=== PATIENT | female | born 1940 | race Caucasian/White ===

== ENCOUNTER → 2018-06-30 | Outpatient (CLI) | payer MEDICARE | LOC: M PLARAD 10:39 | DX: D49.6 Neoplasm of unspecified behavior of brain (principal) | CPT/HCPCS: 78815 ==

== ENCOUNTER 2019-02-16 08:46 | Inpatient (IN) | payer MEDICARE ==
[~2019-02-16] VITALS: Ht 172.7 cm; Wt 71.8 kg
[~2019-02-16 08:46] MED LIST: ASPI81TA85 PO; ATOR40TA75 PO; CARA1TAB6 PO; CLOP75TA2 PO; DOCQ100C5 PO; FERR325T3 PO; FURO20TA2 PO; LISI10TA4 PO; METO1TAB33 PO; MIRA3350 PO; PANT40TA3 PO; SENO8.6T10 PO; TYLE325T5 PO
[2019-02-16] MEDS ORDERED: ADACEL/BOOSTRIX VACCINE (DIPHTH/PERTUSS/ACELL/TETANUS)0.5ML SYR (90715) IM ONE (11:30)
[2019-02-16] MEDS ORDERED: METO1TAB32 PO (11:55)
[2019-02-16] MEDS ORDERED: KEPP1TAB PO (11:56)
[2019-02-16] MEDS ORDERED: COLA100C5 PO (11:56)
[2019-02-16] MEDS ORDERED: ASCO500T PO (11:56)
[2019-02-16] MEDS ORDERED: POTA10TA67 PO (11:56)
[2019-02-16 12:12] LABS: BASO % 0.5 % (0.0-1.0); EOS # 0.1 10^3/uL (0.0-0.50); HEMATOCRIT 39.3 % (36.0-47.0); HEMOGLOBIN 12.6 g/dl (12.0-15.5); LYMPH # 1.2 10^3/uL (1.5-4.5); LYMPH % 13.2 % (24.0-44.0); MEAN CORPUSCULAR HEMOGLOBIN 28.4 pg (27.0-33.0); MEAN CORPUSCULAR HGB CONC 32.1 g/dl (32.0-36.5); MEAN CORPUSCULAR VOLUME 88.5 fl (80.0-96.0); MONO # 0.7 10^3/uL (0.0-0.8); MONO % 8.5 % (0.0-5.0); NEUTROPHILS # 6.7 10^3/uL (1.8-7.7); NEUTROPHILS % 76.3 % (36.0-66.0); PLATELET COUNT, AUTOMATED 235 10^3/uL (150-450); RED BLOOD COUNT 4.44 10^6/uL (4.00-5.40); WHITE BLOOD COUNT 8.7 10^3/uL (4.0-10.0)
[2019-02-16 12:47] LABS: ALBUMIN 3.2 GM/DL (3.2-5.2); ALT/SGPT 21 U/L (12-78); BILIRUBIN,DIRECT 0.3 MG/DL (0.0-0.2); BLOOD UREA NITROGEN 7 MG/DL (7-18); CALCIUM LEVEL 8.7 MG/DL (8.8-10.2); CARBON DIOXIDE LEVEL 28 MEQ/L (21-32); CHLORIDE LEVEL 110 MEQ/L (98-107); CK-MB VALUE MASS 2.4 NG/ML (<3.6); CPK CREATINE PHOSPHOKINASE 108 U/L (26-192); CREATININE FOR GFR 0.56 MG/DL (0.55-1.30); ETHYL ALCOHOL (ETHANOL) < 0.003 % (0.000-0.010); GLOMERULAR FILTRATION RATE > 60.0 (>32); GLUCOSE, FASTING 85 MG/DL (70-100); MB/CK RELATIVE INDEX 2.22 (< OR =4); POTASSIUM SERUM 3.5 MEQ/L (3.5-5.1); SODIUM LEVEL 144 MEQ/L (136-145); TROPONIN I < 0.02 NG/ML (< 0.10)
--- NOTE | 2019-02-16 12:50 | REP ---
Right knee series: Four views. History: Trauma. Findings: Four views of the right knee are presented. No sunrise view. There is soft tissue swelling in the suprapatellar bursa on the lateral radiograph indicating a small joint effusion. There is patellofemoral spur formation. Medial and lateral compartment osteoarthritic spurring is noted as well. There is diffuse osteopenia. Vascular calcification is noted. No fracture is seen. Impression: No fracture noted. Probable joint effusion. Three compartment osteoarthritis and vascular calcification. Diffuse osteopenia. Electronically Signed by Wesley Cansa MD 02/16/2019 12:41 P
--- NOTE | 2019-02-16 12:50 | REP ---
CHEST X-RAY: Two views. HISTORY: Altered mental status. Comparison chest CT study is from May 12, 2018. CHEST X-RAY FINDINGS: EKG monitoring electrodes overlie the chest. Heart is mildly prominent. The thoracic aorta is calcific and tortuous. Pulmonary vasculature is not increased. Pleural angles are sharp. Interstitial markings are little prominent consistent with interstitial fibrosis pattern seen on chest CT. Calcific pleural plaquing is seen. This is unchanged. IMPRESSION: No focal infiltrate. Calcific pleural plaquing. Mild cardiomegaly. Mildly prominent interstitial markings unchanged from comparison CT study. Electronically Signed by Wesley Canas MD 02/16/2019 04:55 P
--- NOTE | 2019-02-16 12:57 | REP ---
Right ankle series: Four views. History: Trauma. Findings: Four views of the right ankle demonstrate mild diffuse osteopenia. Ankle mortise is intact. No fracture is seen. There is Achilles and plantar calcaneal spurring. There is mild to moderate midfoot osteoarthritic spurring. There is some soft tissue swelling anteriorly in the distal calf. Impression: No fracture or other acute bony abnormality seen. Calcaneal spurring and midfoot osteoarthritic spurring noted. Electronically Signed by Wesley Canas MD 02/16/2019 04:56 P
--- NOTE | 2019-02-16 13:02 | REP ---
BILATERAL ELBOW SERIES: Four views of each elbow are performed. There is no acute fracture, dislocation, or intrinsic bone disease. IMPRESSION: No fracture or dislocation. Electronically Signed by Delio Priest MD 02/18/2019 09:18 A
--- NOTE | 2019-02-16 13:04 | REP ---
CT brain without contrast: History: Trauma. Comparison head CT study May 12, 2018. There is apparently a history of a brain tumor. CT findings: Preliminary digital reproductive healthcare assistant radiograph is unremarkable. There is a dural-based slightly hyperdense mass lesion again seen on both sides of the posterior falx. This is similar in size to its appearance on May 12, 2018. It measures approximately 4 cm in transverse dimension. It is associated with fairly extensive vasogenic edema involving the parietal lobes, occipital lobes, and posterior temporal lobes bilaterally. The temporal lobe edema is more extensive on the left than the right. The vasogenic edema appears slightly more prominent today than it did on May 12, 2008. There is no evidence of intracranial hemorrhage. No midline shift is seen. No extra-axial fluid collection is observed. No bony abnormality or fracture is seen. Impression: Fairly large mass adjacent to or involving the posterior falx with extensive vasogenic edema in the parietal lobes, occipital lobes, and temporal lobes bilaterally. The vasogenic edema is slightly more extensive than on May 12, 2018. The neoplastic lesion does not appear to be any larger however. There is no evidence of intracranial hemorrhage or infarction. No extra-axial fluid collection is seen. No midline shift noted. Electronically Signed by Wesley Canas MD 02/16/2019 04:56 P
--- NOTE | 2019-02-16 13:36 | REP ---
CT study of the cervical spine without contrast: History: Trauma. Comparison is made with imaging done on May 12, 2018. Technique: Helical scanning is acquired and overlapping 2 mm high resolution axial images were generated and reviewed at bone and soft tissue window settings. Coronal and sagittal multiplanar re-formations images are generated. CT findings: There is no evidence of cervical spine element fracture. No skull base fracture is seen. Cervical vertebral body heights are preserved. Alignment is normal. Facet joints are normally aligned bilaterally at each cervical level on multiplanar re-formations images. There is no evidence of intraspinal or paraspinal hematoma. No extra vertebral abnormality is seen. There is fairly extensive degenerative spondylosis with degenerative disc changes at each cervical level and osteoarthritic facet changes noted bilaterally. The osteoarthritic facet hypertrophy and sclerosis are most pronounced on the right. There are somewhat elongate transverse processes bilaterally at C7 noted incidentally. There is calcification associated with a left posterior disc protrusion at C5-6. There is uncovertebral spurring bilaterally at C5-6. This is unchanged from the comparison study May 12, 2018. Impression: Fairly advanced degenerative spondylosis change. Left posterior C5-6 calcified disc protrusion. Otherwise negative CT study of the cervical spine without contrast. No fracture seen. Electronically Signed by Wesley Canas MD 02/16/2019 04:56 P
[2019-02-16] MEDS ORDERED: dexameTHASONE 4 MG/ML 1ML VIAL (J1100) IV ONE (15:00)
[2019-02-16 16:00] VITALS: BP 143/66
--- NOTE | 2019-02-16 16:54 | HPEPDOC ---
[facility] Medical History & Physical Date of Admission Feb 16, 2019 History and Physical CHIEF COMPLAINT: Falls HISTORY OF PRESENT ILLNESS: 79 yo female for several day history of falls. Family brought patient to ED for further evaluation and placement. Patient states she will spontaneously fall, but denies any dizziness or light headedness. Denies any other medical complaints. She affirms that she wishes no further intervention regarding her brain tumor. PAST MEDICAL HISTORY: 1. Brain tumor, followed with neurosurg at [facility] - no further intervention 2. HTN 3. CAD/stents 4. dyslipidemia HOME MEDICATIONS: Please see below. PHYSICAL EXAMINATION: VITAL SIGNS: See below GENERAL APPEARANCE: lying comfortably in bed, elderly HEENT: NC/AT, EOMI, edentulous CARDIOVASCULAR: +S1S2, RRR LUNGS: CTA B/L ABDOMEN: soft, NT, +BS LABORATORY DATA: See below. MICROBIOLOGY: Please see below. ASSESSMENT: 79 yo female for multiple falls with PMHx of brain tumor with no further intervention #falls - PT/OT - fall precautions #brain tumor - neurosurg at [facility] consulted - recs for 4mg decadron x 1, then 2mg IV q8h titrate to q12h #HTN #CAD/stents #DVT prophylaxis - mechanical Dispo: pending placement, PT/OT eval Vital Signs Vital Signs Date Time Temp Pulse Resp B/P (MAP) Pulse Ox O2 Delivery O2 Flow Rate FiO2 02/16/19 16:00 97.2 80 18 143/66 (91) 98 02/16/19 15:39 Room Air Laboratory Data Labs 24H Laboratory Tests 2 02/16/19 11:21: Immature Granulocyte % (Auto) 0.5, White Blood Count 8.7, Red Blood Count 4.44, Hemoglobin 12.6, Hematocrit 39.3, Mean Corpuscular Volume 88.5, Mean Corpuscular Hemoglobin 28.4, Mean Corpuscular Hemoglobin Concent 32.1, Red Cell Distribution Width 14.5, Platelet Count 235, Neutrophils (%) (Auto) 76.3H, Lymphocytes (%) (Auto) 13.2L, Monocytes (%) (Auto) 8.5H, Eosinophils (%) (Auto) 1.0, Basophils (%) (Auto) 0.5, Neutrophils # (Auto) 6.7, Lymphocytes # (Auto) 1.2L, Monocytes # (Auto) 0.7, Eosinophils # (Auto) 0.1, Basophils # (Auto) 0.0, Nucleated Red Blood Cells % (auto) 0.0, Anion Gap 6L, Glomerular Filtration Rate > 60.0, Calcium Level 8.7L, Aspartate Amino Transf (AST/SGOT) 32, Alanine Aminotransferase (ALT/SGPT) 21, Alkaline Phosphatase 120H, Total Bilirubin 1.0, Direct Bilirubin 0.3H, Ammonia 21, Total Creatine Kinase 108, Creatine Kinase MB 2.4, Creatine Kinase MB Relative Index 2.22, Troponin I < 0.02, Total Protein 7.0, Albumin 3.2, Albumin/Globulin Ratio 0.84L, Thyroid Stimulating Hormone (TSH) 1.640, Ethyl Alcohol Level < 0.003 02/16/19 11:28: Urine Color YELLOW, Urine Appearance CLEAR, Urine pH 7.0, Urine Specific [place] 1.010, Urine Protein NEGATIVE, Urine Glucose (UA) NEGATIVE, Urine Ketones TRACEH, Urine Blood NEGATIVE, Urine Nitrite NEGATIVE, Urine Bilirubin NEGATIVE, Urine Urobilinogen 0.2, Urine Leukocyte Esterase NEGATIVE, Urine WBC (Auto) 0, Urine RBC (Auto) 2, Urine Hyaline Casts (Auto) 0, Urine Bacteria (Auto) NEGATIV E, Urine Squamous Epithelial Cells 0, Urine Mucus (Auto) SMALL, Urine Sperm (Auto) 02/16/19 12:49: Bedside Glucose (Misc Panel) 88 CBC/BMP Laboratory Tests 02/16/19 11:21 Red Blood Count 4.44, Mean Corpuscular Volume 88.5, Mean Corpuscular Hemoglobin 28.4, Mean Corpuscular Hemoglobin Concent 32.1, Red Cell Distribution Width 14.5, Neutrophils (%) (Auto) 76.3 H, Lymphocytes (%) (Auto) 13.2 L, Monocytes (%) (Auto) 8.5 H, Eosinophils (%) (Auto) 1.0, Basophils (%) (Auto) 0.5, Neutrophils # (Auto) 6.7, Lymphocytes # (Auto) 1.2 L, Monocytes # (Auto) 0.7, Eosinophils # (Auto) 0.1, Basophils # (Auto) 0.0 Home Medications Scheduled Ascorbic Acid (Ascorbic Acid) 500 Mg Tablet, 500 MG PO DAILY Atorvastatin Calcium (Atorvastatin Calcium) 40 Mg Tab, 40 MG PO QHS Docusate Sodium (Colace) 100 Mg Capsule, 100 MG PO BID Furosemide (Furosemide) 20 Mg Tab, 20 MG PO DAILY Levetiracetam (Keppra) 500 Mg Tablet, 500 MG PO BID Metoprolol Succinate (Metoprolol Succinate) 25 Mg Tab.er.24h, 25 MG PO DAILY Pantoprazole Sodium (Pantoprazole Sodium) 40 Mg Tab, 40 MG PO BID Potassium Chloride (Potassium Chloride) 10 Meq Tab.er.prt, 10 MEQ PO BID Allergies Coded Allergies: No Known Allergies (Unverified , 02/16/19) A-FIB/CHADSVASC A-FIB History Current/History of A-Fib/PAF?: No Current PO Anticoag Therapy: No SIRIA PLUNKETT MD Feb 16, 2019 16:53
[2019-02-16] MEDS: POTASSIUM CHLORIDE 10 MEQ SR TABLET PO SCH (20:49)
[2019-02-16] MEDS: levETIRAcetam 250MG TABLET (KEPPRA) PO SCH (20:50)
[2019-02-16] MEDS: PANTOPRAZOLE 40MG TAB (PROTONIX) PO SCH (20:50)
[2019-02-16] MEDS: DOCUSATE SODIUM 100 MG CAP PO SCH (20:50)
[2019-02-16] MEDS: ATORVASTATIN 20 MG TAB PO SCH (20:50)
[2019-02-16 22:00] VITALS: BP 140/60
[2019-02-17] MEDS: dexameTHASONE 4 MG/ML 1ML VIAL (J1100) IV SCH ×4 (00:24→23:56)
--- NOTE | 2019-02-17 03:34 | ECGEPIP ---
[facility] - ED Test Date: 2019-02-16 Pat Name: ANIL VERMA Department: Room: - Gender: Female Television Program Director: shantel : 1940 Requested By: SOURAV sDouza Order Number: [id number] Reading MD: Dennis Benitez Measurements Intervals [place] Rate: 83 P: 43 ID: [id number] QRS: 29 QRSD: 83 T: 43 QT: 369 QTc: 436 Interpretive Statements SINUS RHYTHM POSSIBLE LEFT ATRIAL ENLARGEMENT POSSIBLE PRIOR INFERIOR INFARCT SIMILAR TO 10/03/15 Electronically Signed on 02-17-2019 3:34:11 EDT by Dennis Benitez
[2019-02-17 06:00] VITALS: BP 136/62
[2019-02-17 06:20] LABS: HEMATOCRIT 38.1 % (36.0-47.0); HEMOGLOBIN 12.3 g/dl (12.0-15.5); MEAN CORPUSCULAR HEMOGLOBIN 28.8 pg (27.0-33.0); MEAN CORPUSCULAR HGB CONC 32.3 g/dl (32.0-36.5); MEAN CORPUSCULAR VOLUME 89.2 fl (80.0-96.0); PLATELET COUNT, AUTOMATED 253 10^3/uL (150-450); RED BLOOD COUNT 4.27 10^6/uL (4.00-5.40); WHITE BLOOD COUNT 7.2 10^3/uL (4.0-10.0)
[2019-02-17 06:53] LABS: ALBUMIN 2.8 GM/DL (3.2-5.2); ALT/SGPT 20 U/L (12-78); BILIRUBIN,TOTAL 0.7 MG/DL (0.2-1.0); BLOOD UREA NITROGEN 11 MG/DL (7-18); CALCIUM LEVEL 8.4 MG/DL (8.8-10.2); CARBON DIOXIDE LEVEL 27 MEQ/L (21-32); CHLORIDE LEVEL 110 MEQ/L (98-107); CREATININE FOR GFR 0.59 MG/DL (0.55-1.30); GLOMERULAR FILTRATION RATE > 60.0 (>32); GLUCOSE, FASTING 133 MG/DL (70-100); POTASSIUM SERUM 3.9 MEQ/L (3.5-5.1); SODIUM LEVEL 142 MEQ/L (136-145); TOTAL PROTEIN 6.9 GM/DL (6.4-8.2)
[2019-02-17] MEDS: ASCORBIC ACID 500 MG TAB PO SCH (08:36)
[2019-02-17] MEDS: PANTOPRAZOLE 40MG TAB (PROTONIX) PO SCH ×2 (08:36→20:42)
[2019-02-17] MEDS: levETIRAcetam 250MG TABLET (KEPPRA) PO SCH ×2 (08:36→20:43)
[2019-02-17] MEDS: DOCUSATE SODIUM 100 MG CAP PO SCH ×2 (08:36→20:42)
[2019-02-17] MEDS: FUROSEMIDE 20 MG TAB PO SCH (08:37)
[2019-02-17] MEDS: METOPROLOL SUCC *XL* 25MG TAB (TopROL *XL*) PO SCH (08:37)
[2019-02-17] MEDS: POTASSIUM CHLORIDE 10 MEQ SR TABLET PO SCH ×2 (08:37→20:43)
--- NOTE | 2019-02-17 11:16 | IPNPDOC ---
Text Note Date of Service The patient was seen on 02/17/19. NOTE Subjective: Patient seen and examined at bedside. No acute overnight events reported. No new medical complaints this morning Objective: VITAL SIGNS: See below GENERAL APPEARANCE: sitting comfortably in chair, elderly HEENT: NC/AT, EOMI, edentulous CARDIOVASCULAR: +S1S2, RRR LUNGS: CTA B/L ABDOMEN: soft, NT, +BS LABORATORY DATA: See below. MICROBIOLOGY: Please see below. ASSESSMENT: 79 yo female for multiple falls with PMHx of brain tumor with no further intervention #worsening cerebral edema - treated with IV steroid therapy - secondary to brain tumor - d/w neurosurgery at [facility] #falls - PT/OT - fall precautions #brain tumor - neurosurg at [facility] consulted - recs for 4mg decadron x 1, then 2mg IV q8h titrate to q12h #HTN #CAD/stents #DVT prophylaxis - mechanical Dispo: pending placement, PT/OT eval VS,Fishbone, I+O VS, Fishbone, I+O Laboratory Tests 02/16/19 11:21 Red Blood Count 4.44, Mean Corpuscular Volume 88.5, Mean Corpuscular Hemoglobin 28.4, Mean Corpuscular Hemoglobin Concent 32.1, Red Cell Distribution Width 14.5, Neutrophils (%) (Auto) 76.3 H, Lymphocytes (%) (Auto) 13.2 L, Monocytes ( %) (Auto) 8.5 H, Eosinophils (%) (Auto) 1.0, Basophils (%) (Auto) 0.5, Neutrophils # (Auto) 6.7, Lymphocytes # (Auto) 1.2 L, Monocytes # (Auto) 0.7, Eosinophils # (Auto) 0.1, Basophils # (Auto) 0.0 02/17/19 05:35 Red Blood Count 4.27, Mean Corpuscular Volume 89.2, Mean Corpuscular Hemoglobin 28.8, Mean Corpuscular Hemoglobin Concent 32.3, Red Cell Distribution Width 14.5, Calcium Level 8.4 L, Aspartate Amino Transf (AST/SGOT) 25, Alanine Aminotransferase (ALT/SGPT) 20, Alkaline Phosphatase 115, Total Bilirubin 0.7, Total Protein 6.9, Albumin 2.8 L Vital Signs Date Time Temp Pulse Resp B/P (MAP) Pulse Ox O2 Delivery O2 Flow Rate FiO2 02/17/19 08:37 82 121/73 02/17/19 06:00 97.8 18 97 02/16/19 15:39 Room Air I&O- Last 24 Hours up to 6 AM 02/17/19 05:59 Intake Total 1080 ml Output Total 650 ml Balance 430 ml SIRIA PLUNKETT MD Feb 17, 2019 11:16
[2019-02-17 14:00] VITALS: BP 134/71
[2019-02-17] MEDS: ATORVASTATIN 20 MG TAB PO SCH (20:42)
[2019-02-17 22:00] VITALS: BP 145/87
[2019-02-18 06:00] VITALS: BP 134/77
[2019-02-18] MEDS: dexameTHASONE 4 MG/ML 1ML VIAL (J1100) IV SCH ×2 (06:20→16:03)
[2019-02-18] MEDS: POTASSIUM CHLORIDE 10 MEQ SR TABLET PO SCH ×2 (09:02→20:52)
[2019-02-18] MEDS: ASCORBIC ACID 500 MG TAB PO SCH (09:02)
[2019-02-18] MEDS: FUROSEMIDE 20 MG TAB PO SCH (09:02)
[2019-02-18] MEDS: levETIRAcetam 250MG TABLET (KEPPRA) PO SCH ×2 (09:02→20:52)
[2019-02-18] MEDS: DOCUSATE SODIUM 100 MG CAP PO SCH ×2 (09:02→20:52)
[2019-02-18] MEDS: PANTOPRAZOLE 40MG TAB (PROTONIX) PO SCH ×2 (09:02→20:52)
[2019-02-18] MEDS: METOPROLOL SUCC *XL* 25MG TAB (TopROL *XL*) PO SCH (09:03)
[2019-02-18 14:00] VITALS: BP 135/77
--- NOTE | 2019-02-18 15:48 | IPNPDOC ---
Text Note Date of Service The patient was seen on 02/18/19. NOTE Subjective: Patient seen and examined at bedside. No acute overnight events reported. No new medical complaints this morning Objective: VITAL SIGNS: See below GENERAL APPEARANCE: sitting comfortably in chair, elderly HEENT: NC/AT, EOMI, edentulous CARDIOVASCULAR: +S1S2, RRR LUNGS: CTA B/L ABDOMEN: soft, NT, +BS LABORATORY DATA: See below. MICROBIOLOGY: Please see below. ASSESSMENT: 79 yo female for multiple falls with PMHx of brain tumor with no further intervention #worsening cerebral edema - currently treated with IV steroid therapy - secondary to brain tumor - on admission was discussed with neurosurgery at [facility] #falls - PT/OT - fall precautions #brain tumor - no intervention as per patient and neurosurgery - neurosurg at [facility] consulted - recs for 4mg decadron x 1, then 2mg IV q8h titrate to q12h #HTN #CAD/stents #DVT prophylaxis - mechanical Dispo: pending placement, ARU screen, PT/OT eval VS,Fishbone, I+O VS, Fishbone, I+O Vital Signs Date Time Temp Pulse Resp B/P (MAP) Pulse Ox O2 Delivery O2 Flow Rate FiO2 02/18/19 09:03 72 120/63 02/18/19 06:00 97.5 18 95 02/16/19 15:39 Room Air I&O- Last 24 Hours up to 6 AM 02/18/19 05:59 Intake Total 520 ml Output Total 900 ml Balance -380 ml SIRIA PLUNKETT MD Feb 18, 2019 15:48
[2019-02-18] MEDS: ATORVASTATIN 20 MG TAB PO SCH (20:52)
[2019-02-18 22:00] VITALS: BP 134/80
[2019-02-19] MEDS: dexameTHASONE 4 MG/ML 1ML VIAL (J1100) IV SCH ×4 (01:02→23:47)
[2019-02-19 06:00] VITALS: BP 129/76
[2019-02-19] MEDS: POTASSIUM CHLORIDE 10 MEQ SR TABLET PO SCH ×2 (07:52→20:43)
[2019-02-19] MEDS: PANTOPRAZOLE 40MG TAB (PROTONIX) PO SCH ×2 (07:53→20:43)
[2019-02-19] MEDS: ASCORBIC ACID 500 MG TAB PO SCH (07:53)
[2019-02-19] MEDS: levETIRAcetam 250MG TABLET (KEPPRA) PO SCH ×2 (07:53→20:43)
[2019-02-19] MEDS: FUROSEMIDE 20 MG TAB PO SCH (07:54)
[2019-02-19] MEDS: DOCUSATE SODIUM 100 MG CAP PO SCH ×2 (07:54→20:43)
[2019-02-19] MEDS: METOPROLOL SUCC *XL* 25MG TAB (TopROL *XL*) PO SCH (07:56)
[2019-02-19 14:00] VITALS: BP 140/66
--- NOTE | 2019-02-19 14:33 | IPNPDOC ---
Text Note Date of Service The patient was seen on 02/19/19. NOTE Subjective: Patient seen and examined at bedside. No acute overnight events reported. No new medical complaints this morning Objective: VITAL SIGNS: See below GENERAL APPEARANCE: sitting comfortably in chair, elderly HEENT: NC/AT, EOMI, edentulous CARDIOVASCULAR: +S1S2, RRR LUNGS: CTA B/L ABDOMEN: soft, NT, +BS LABORATORY DATA: See below. MICROBIOLOGY: Please see below. ASSESSMENT: 79 yo female for multiple falls with PMHx of brain tumor with no further intervention #worsening cerebral edema - currently treated with IV steroid therapy - secondary to brain tumor - on admission was discussed with neurosurgery at [facility] #falls - PT/OT - fall precautions #brain tumor - no intervention as per patient and neurosurgery - neurosurg at [facility] consulted - recs for 4mg decadron x 1, then 2mg IV q8h titrate to q12h #HTN #CAD/stents #DVT prophylaxis - mechanical Dispo: pending placement, continue IV steroid therapy VS,Fishbone, I+O VS, Fishbone, I+O Vital Signs Date Time Temp Pulse Resp B/P (MAP) Pulse Ox O2 Delivery O2 Flow Rate FiO2 02/19/19 07:56 76 126/68 02/19/19 06:00 97.6 18 97 02/16/19 15:39 Room Air I&O- Last 24 Hours up to 6 AM 02/19/19 06:00 Intake Total 900 ml Output Total 1100 ml Balance -200 ml SIRIA PLUNKETT MD Feb 19, 2019 14:33
[2019-02-19] MEDS: ATORVASTATIN 20 MG TAB PO SCH (20:43)
[2019-02-19 22:00] VITALS: BP 138/91
[2019-02-20 06:00] VITALS: BP 136/85
[2019-02-20] MEDS: dexameTHASONE 4 MG/ML 1ML VIAL (J1100) IV SCH ×3 (06:25→23:17)
[2019-02-20 08:30] VITALS: BP 128/59
[2019-02-20] MEDS: DOCUSATE SODIUM 100 MG CAP PO SCH ×2 (08:32→20:17)
[2019-02-20] MEDS: levETIRAcetam 250MG TABLET (KEPPRA) PO SCH ×2 (08:33→20:17)
[2019-02-20] MEDS: PANTOPRAZOLE 40MG TAB (PROTONIX) PO SCH ×2 (08:33→20:17)
[2019-02-20] MEDS: ASCORBIC ACID 500 MG TAB PO SCH (08:33)
[2019-02-20] MEDS: FUROSEMIDE 20 MG TAB PO SCH (08:33)
[2019-02-20] MEDS: POTASSIUM CHLORIDE 10 MEQ SR TABLET PO SCH ×2 (08:33→20:17)
[2019-02-20] MEDS: METOPROLOL SUCC *XL* 25MG TAB (TopROL *XL*) PO SCH (08:35)
--- NOTE | 2019-02-20 10:32 | IPNPDOC ---
Text Note Date of Service The patient was seen on 02/20/19. NOTE Subjective: Patient seen and examined at bedside. No acute overnight events reported. No new medical complaints this morning Objective: VITAL SIGNS: See below GENERAL APPEARANCE: sitting comfortably in chair, elderly HEENT: NC/AT, EOMI, edentulous CARDIOVASCULAR: +S1S2, RRR LUNGS: CTA B/L ABDOMEN: soft, NT, +BS LABORATORY DATA: See below. MICROBIOLOGY: Please see below. ASSESSMENT: 79 yo female for multiple falls with PMHx of brain tumor with no further intervention. #worsening cerebral edema - currently treated with IV steroid therapy - secondary to brain tumor - on admission was discussed with neurosurgery at [facility] #falls - PT/OT - fall precautions #brain tumor - no intervention as per patient and neurosurgery - neurosurg at [facility] consulted - recs for 4mg decadron x 1, then 2mg IV q8h titrate to q12h #HTN #CAD/stents #DVT prophylaxis - mechanical Dispo: pending placement, continue IV steroid therapy - likely taper to q12h tomorrow VS,Fishbone, I+O VS, Fishbone, I+O Vital Signs Date Time Temp Pulse Resp B/P (MAP) Pulse Ox O2 Delivery O2 Flow Rate FiO2 02/20/19 08:35 81 128/59 02/20/19 06:00 97.0 17 99 02/16/19 15:39 Room Air I&O- Last 24 Hours up to 6 AM 02/20/19 06:00 Intake Total 1240 ml Output Total 500 ml Balance 740 ml SIRIA PLUNKETT MD Feb 20, 2019 10:32
[2019-02-20 14:00] VITALS: BP 134/77
[2019-02-20] MEDS: ATORVASTATIN 20 MG TAB PO SCH (20:17)
[2019-02-20 22:00] VITALS: BP 149/81
[2019-02-21 06:00] VITALS: BP 113/63
[2019-02-21] MEDS: dexameTHASONE 4 MG/ML 1ML VIAL (J1100) IV SCH ×3 (06:05→23:36)
[2019-02-21] MEDS: PANTOPRAZOLE 40MG TAB (PROTONIX) PO SCH ×2 (08:39→19:19)
[2019-02-21] MEDS: levETIRAcetam 250MG TABLET (KEPPRA) PO SCH ×2 (08:39→19:19)
[2019-02-21] MEDS: DOCUSATE SODIUM 100 MG CAP PO SCH ×2 (08:40→19:19)
[2019-02-21] MEDS: FUROSEMIDE 20 MG TAB PO SCH (08:40)
[2019-02-21] MEDS: ASCORBIC ACID 500 MG TAB PO SCH (08:40)
[2019-02-21] MEDS: METOPROLOL SUCC *XL* 25MG TAB (TopROL *XL*) PO SCH (08:51)
[2019-02-21] MEDS: POTASSIUM CHLORIDE 10 MEQ SR TABLET PO SCH ×2 (08:51→19:20)
--- NOTE | 2019-02-21 09:06 | IPNPDOC ---
Text Note Date of Service The patient was seen on 02/21/19. NOTE Subjective: Patient seen and examined at bedside. No acute overnight events reported. No new medical complaints this morning Objective: VITAL SIGNS: See below GENERAL APPEARANCE: sitting comfortably in chair, elderly HEENT: NC/AT, EOMI, edentulous CARDIOVASCULAR: +S1S2, RRR LUNGS: CTA B/L ABDOMEN: soft, NT, +BS LABORATORY DATA: See below. MICROBIOLOGY: Please see below. ASSESSMENT: 79 yo female for multiple falls with PMHx of brain tumor with no further intervention. #worsening cerebral edema - currently treated with IV steroid therapy - secondary to brain tumor - on admission was discussed with neurosurgery at [facility] #falls - PT/OT - fall precautions #brain tumor - no intervention as per patient and neurosurgery - decadron q12h #HTN #CAD/stents #DVT prophylaxis - mechanical Dispo: pending placement, continue IV steroid therapy - taper to q12h VS,Fishbone, I+O VS, Fishbone, I+O Vital Signs Date Time Temp Pulse Resp B/P (MAP) Pulse Ox O2 Delivery O2 Flow Rate FiO2 02/21/19 08:51 82 142/84 02/21/19 06:00 97.1 18 98 02/16/19 15:39 Room Air I&O- Last 24 Hours up to 6 AM 02/21/19 06:00 Intake Total 1600 ml Output Total 1200 ml Balance 400 ml SIRIA PLUNKETT MD Feb 21, 2019 09:06
[2019-02-21 14:00] VITALS: BP 138/70
[2019-02-21] MEDS: ATORVASTATIN 20 MG TAB PO SCH (19:19)
[2019-02-21 22:00] VITALS: BP 122/70
[2019-02-22 06:00] VITALS: BP 107/72
[2019-02-22] MEDS: dexameTHASONE 4 MG/ML 1ML VIAL (J1100) IV SCH ×2 (09:03→21:00)
[2019-02-22] MEDS: levETIRAcetam 250MG TABLET (KEPPRA) PO SCH ×2 (09:04→21:01)
[2019-02-22] MEDS: ASCORBIC ACID 500 MG TAB PO SCH (09:04)
[2019-02-22] MEDS: POTASSIUM CHLORIDE 10 MEQ SR TABLET PO SCH ×2 (09:04→21:01)
[2019-02-22] MEDS: DOCUSATE SODIUM 100 MG CAP PO SCH ×2 (09:04→21:01)
[2019-02-22] MEDS: PANTOPRAZOLE 40MG TAB (PROTONIX) PO SCH ×2 (09:06→21:01)
[2019-02-22] MEDS: METOPROLOL SUCC *XL* 25MG TAB (TopROL *XL*) PO SCH (09:06)
[2019-02-22] MEDS: FUROSEMIDE 20 MG TAB PO SCH (09:07)
[2019-02-22 14:00] VITALS: BP 138/72
--- NOTE | 2019-02-22 15:22 | IPNPDOC ---
Text Note Date of Service The patient was seen on 02/22/19. NOTE Denies any acute clinical complaints. Denies any SOB or CP. PHE: VITAL SIGNS: See below GENERAL APPEARANCE: NAD HEENT: ALEXANDRA EOMI neck supple no icterus CARDIOVASCULAR: S1 S2 no murmur LUNGS: CTA B/L ABDOMEN: soft, NT, +BS LABORATORY DATA: See below. MICROBIOLOGY: Please see below. Vital Signs Date Time Temp Pulse Resp B/P (MAP) Pulse Ox O2 Delivery O2 Flow Rate FiO2 02/22/19 09:06 77 122/70 02/22/19 06:00 98.0 95 16 107/72 (84) 98 02/21/19 22:00 97.9 96 18 122/70 (87) 94 Intake & Output 02/22/19 06:00 Intake Total 1270 ml Output Total 950 ml Balance 320 ml Current Medications Medications (Trade) Dose Ordered Sig/Ky Route PRN Reason Start Time Stop Time Status Last Admin Dose Admin Ascorbic Acid (Vitamin C) 500 mg DAILY PO 02/17/19 09:00 02/22/19 09:04 500 MG Atorvastatin Calcium (Lipitor) 40 mg QHS PO 02/16/19 21:00 02/21/19 19:19 40 MG Dexamethasone (Decadron) 2 mg Q12H IV 02/22/19 09:00 02/22/19 09:03 2 MG Docusate Sodium (Colace) 100 mg BID PO 02/16/19 21:00 02/22/19 09:04 100 MG Furosemide (Lasix) 20 mg DAILY PO 02/17/19 09:00 02/22/19 09:07 20 MG Levetiracetam (Keppra) 500 mg BID PO 02/16/19 21:00 02/22/19 09:04 500 MG Metoprolol Succinate (TopROL XL) 25 mg DAILY PO 02/17/19 09:00 02/22/19 09:06 25 MG Pantoprazole Sodium (Protonix) 40 mg BID PO 02/16/19 21:00 02/22/19 09:06 40 MG Potassium Chloride (Micro-K Extencaps) 10 meq BID PO 02/16/19 21:00 02/22/19 09:04 10 MEQ 1-cerebral edema - currently treated with IV steroid therapy - secondary to brain tumor - on admission was discussed with neurosurgery at [facility] 2-falls - PT/OT - fall precautions 3-brain tumor - no intervention as per patient and neurosurgery - decadron q12h 4-HTN 5-CAD/stents DVT prophylaxis - mechanical Dispo: awaiting placement VS,Fishbone, I+O VS, Fishbone, I+O Vital Signs Date Time Temp Pulse Resp B/P (MAP) Pulse Ox O2 Delivery O2 Flow Rate FiO2 02/22/19 09:06 77 122/70 02/22/19 06:00 98.0 16 98 02/16/19 15:39 Room Air I&O- Last 24 Hours up to 6 AM 02/22/19 06:00 Intake Total 1270 ml Output Total 950 ml Balance 320 ml KENYA SAM MD Feb 22, 2019 15:22
[2019-02-22] MEDS: ATORVASTATIN 20 MG TAB PO SCH (21:02)
[2019-02-22 22:00] VITALS: BP 103/62
[2019-02-23 06:00] VITALS: BP 101/59
[2019-02-23] MEDS: DOCUSATE SODIUM 100 MG CAP PO SCH ×2 (08:49→20:25)
[2019-02-23] MEDS: levETIRAcetam 250MG TABLET (KEPPRA) PO SCH ×2 (08:49→20:25)
[2019-02-23] MEDS: dexameTHASONE 4 MG/ML 1ML VIAL (J1100) IV SCH ×2 (08:49→20:25)
[2019-02-23] MEDS: POTASSIUM CHLORIDE 10 MEQ SR TABLET PO SCH ×2 (08:49→20:25)
[2019-02-23] MEDS: PANTOPRAZOLE 40MG TAB (PROTONIX) PO SCH ×2 (08:51→20:25)
[2019-02-23] MEDS: ASCORBIC ACID 500 MG TAB PO SCH (08:51)
[2019-02-23] MEDS: METOPROLOL SUCC *XL* 25MG TAB (TopROL *XL*) PO SCH (08:51)
[2019-02-23] MEDS: FUROSEMIDE 20 MG TAB PO SCH (08:52)
--- NOTE | 2019-02-23 11:28 | IPNPDOC ---
Text Note Date of Service The patient was seen on 02/23/19. NOTE No events reported overnight. Denies acute complaints. Pt daughter concerns and questions will be addressed. PHE: VITAL SIGNS: See below GENERAL APPEARANCE: NAD HEENT: ALEXANDRA EOMI neck supple no icterus CARDIOVASCULAR: S1 S2 no murmur LUNGS: CTA B/L ABDOMEN: soft, NT, +BS LABORATORY DATA: See below. MICROBIOLOGY: Please see below. Vital Signs Date Time Temp Pulse Resp B/P (MAP) Pulse Ox O2 Delivery O2 Flow Rate FiO2 02/23/19 08:51 85 104/61 02/23/19 06:00 97.2 80 17 101/59 (73) 98 02/22/19 22:00 97.2 87 18 103/62 (76) 95 02/22/19 14:00 97.5 95 18 138/72 (94) 94 Intake & Output 02/23/19 06:00 Intake Total 1620 ml Output Total 300 ml Balance 1320 ml Current Medications Medications (Trade) Dose Ordered Sig/Ky Route PRN Reason Start Time Stop Time Status Last Admin Dose Admin Ascorbic Acid (Vitamin C) 500 mg DAILY PO 02/17/19 09:00 02/23/19 08:51 500 MG Atorvastatin Calcium (Lipitor) 40 mg QHS PO 02/16/19 21:00 02/22/19 21:02 40 MG Dexamethasone (Decadron) 2 mg Q12H IV 02/22/19 09:00 02/23/19 08:49 2 MG Docusate Sodium (Colace) 100 mg BID PO 02/16/19 21:00 02/23/19 08:49 100 MG Furosemide (Lasix) 20 mg DAILY PO 02/17/19 09:00 02/23/19 08:52 20 MG Levetiracetam (Keppra) 500 mg BID PO 02/16/19 21:00 02/23/19 08:49 500 MG Metoprolol Succinate (TopROL XL) 25 mg DAILY PO 02/17/19 09:00 02/23/19 08:51 25 MG Pantoprazole Sodium (Protonix) 40 mg BID PO 02/16/19 21:00 02/23/19 08:51 40 MG Potassium Chloride (Micro-K Extencaps) 10 meq BID PO 02/16/19 21:00 02/23/19 08:49 10 MEQ 1-cerebral edema - currently treated with IV steroid therapy - secondary to brain tumor - on admission was discussed with neurosurgery at [facility] 2-falls - PT/OT - fall precautions 3-brain tumor - no intervention as per patient and neurosurgery - decadron q12h 4-HTN 5-CAD/stents DVT prophylaxis - mechanical Dispo: awaiting placement VS,Fishbone, I+O VS, Fishbone, I+O Vital Signs Date Time Temp Pulse Resp B/P (MAP) Pulse Ox O2 Delivery O2 Flow Rate FiO2 02/23/19 08:51 85 104/61 02/23/19 06:00 97.2 17 98 I&O- Last 24 Hours up to 6 AM 02/23/19 06:00 Intake Total 1620 ml Output Total 300 ml Balance 1320 ml KENYA SAM MD Feb 23, 2019 11:28
[2019-02-23 14:00] VITALS: BP 103/62
[2019-02-23] MEDS: ATORVASTATIN 20 MG TAB PO SCH (20:25)
[2019-02-23 22:00] VITALS: BP 107/63
[2019-02-24 06:00] VITALS: BP 114/65
[2019-02-24] MEDS: ASCORBIC ACID 500 MG TAB PO SCH (09:21)
[2019-02-24] MEDS: DOCUSATE SODIUM 100 MG CAP PO SCH ×2 (09:21→20:01)
[2019-02-24] MEDS: PANTOPRAZOLE 40MG TAB (PROTONIX) PO SCH ×2 (09:24→20:02)
[2019-02-24] MEDS: FUROSEMIDE 20 MG TAB PO SCH (09:24)
[2019-02-24] MEDS: METOPROLOL SUCC *XL* 25MG TAB (TopROL *XL*) PO SCH (09:24)
[2019-02-24] MEDS: POTASSIUM CHLORIDE 10 MEQ SR TABLET PO SCH ×2 (09:24→20:01)
[2019-02-24] MEDS: levETIRAcetam 250MG TABLET (KEPPRA) PO SCH ×2 (09:25→20:01)
[2019-02-24] MEDS: dexameTHASONE 4 MG/ML 1ML VIAL (J1100) IV SCH ×2 (09:35→20:01)
[2019-02-24 14:00] VITALS: BP 113/60
[2019-02-24] MEDS: ATORVASTATIN 20 MG TAB PO SCH (20:02)
[2019-02-24 22:00] VITALS: BP 112/64
--- NOTE | 2019-02-24 23:08 | IPNPDOC ---
Text Note Date of Service The patient was seen on 02/24/19. NOTE Pt is very pleasant, sitting in chair. Denies any headache, any motor weakness. Denies dizziness or palpitations. Denies visual changes. No acute distress. No events overnight. PHE: VITAL SIGNS: See below GENERAL APPEARANCE: NAD HEENT: ALEXANDRA EOMI neck supple no icterus CARDIOVASCULAR: S1 S2 no murmur LUNGS: CTA B/L ABDOMEN: soft, NT, +BS LABORATORY DATA: See below. MICROBIOLOGY: Please see below. Vital Signs Date Time Temp Pulse Resp B/P (MAP) Pulse Ox O2 Delivery O2 Flow Rate FiO2 02/24/19 22:00 97.0 76 20 112/64 (80) 97 02/24/19 14:00 96.8 70 16 113/60 (77) 96 02/24/19 09:24 71 103/64 02/24/19 06:00 97.4 68 18 114/65 (81) 92 Intake & Output 02/24/19 06:00 Intake Total 1380 ml Output Total 550 ml Balance 830 ml Current Medications Medications (Trade) Dose Ordered Sig/Ky Route PRN Reason Start Time Stop Time Status Last Admin Dose Admin Ascorbic Acid (Vitamin C) 500 mg DAILY PO 02/17/19 09:00 02/24/19 09:21 500 MG Atorvastatin Calcium (Lipitor) 40 mg QHS PO 02/16/19 21:00 02/24/19 20:02 40 MG Dexamethasone (Decadron) 2 mg Q12H IV 02/22/19 09:00 02/24/19 20:01 2 MG Docusate Sodium (Colace) 100 mg BID PO 02/16/19 21:00 02/24/19 20:01 100 MG Furosemide (Lasix) 20 mg DAILY PO 02/17/19 09:00 02/24/19 09:24 20 MG Levetiracetam (Keppra) 500 mg BID PO 02/16/19 21:00 02/24/19 20:01 500 MG Metoprolol Succinate (TopROL XL) 25 mg DAILY PO 02/17/19 09:00 02/24/19 09:24 25 MG Pantoprazole Sodium (Protonix) 40 mg BID PO 02/16/19 21:00 02/24/19 20:02 40 MG Potassium Chloride (Micro-K Extencaps) 10 meq BID PO 02/16/19 21:00 02/24/19 20:01 10 MEQ 1-cerebral edema - currently treated with IV steroid therapy - secondary to brain tumor - on admission was discussed with neurosurgery at [facility] 2-falls - PT/OT - fall precautions 3-brain tumor - no intervention as per patient and neurosurgery - decadron q12h 4-HTN 5-CAD/stents DVT prophylaxis - mechanical Dispo: awaiting placement VS,Fishbone, I+O VS, Fishbone, I+O Vital Signs Date Time Temp Pulse Resp B/P (MAP) Pulse Ox O2 Delivery O2 Flow Rate FiO2 02/24/19 22:00 97.0 76 20 112/64 (80) 97 I&O- Last 24 Hours up to 6 AM 02/24/19 06:00 Intake Total 1380 ml Output Total 550 ml Balance 830 ml KENYA SAM MD Feb 24, 2019 23:08
[2019-02-25 06:00] VITALS: BP 117/69
[2019-02-25 09:13] VITALS: BP 109/53
[2019-02-25] MEDS: METOPROLOL SUCC *XL* 25MG TAB (TopROL *XL*) PO SCH (09:13)
[2019-02-25] MEDS: POTASSIUM CHLORIDE 10 MEQ SR TABLET PO SCH (09:14)
[2019-02-25] MEDS: ASCORBIC ACID 500 MG TAB PO SCH (09:14)
[2019-02-25] MEDS: FUROSEMIDE 20 MG TAB PO SCH (09:15)
[2019-02-25] MEDS: PANTOPRAZOLE 40MG TAB (PROTONIX) PO SCH (09:15)
[2019-02-25] MEDS: levETIRAcetam 250MG TABLET (KEPPRA) PO SCH (09:15)
[2019-02-25] MEDS: DOCUSATE SODIUM 100 MG CAP PO SCH (09:15)
[2019-02-25] MEDS: dexameTHASONE 4 MG/ML 1ML VIAL (J1100) IV SCH (09:15)
[2019-02-25] MEDS ORDERED: DEXA2TA PO (11:00)
--- NOTE | 2019-02-25 19:59 | DS.PDOC ---
Discharge Summary General Date of Admission Feb 17, 2019 at 14:48 Date of Discharge Feb 25, 2019 Discharge Summary PROCEDURES PERFORMED DURING STAY: [None]. ADMITTING DIAGNOSES: 1.Frequent Falls 2.Brain Tumor not operable 3.Cerebral edema 4.Hx of CAD s/p PCI 5.HTN DISCHARGE DIAGNOSES: same as above COMPLICATIONS/CHIEF COMPLAINT: Frequent Falls. HISTORY OF PRESENT ILLNESS: As recorded in H&P: 79 yo female for several day history of falls. Family brought patient to ED for further evaluation and placement. Patient states she will spontaneously fall, but denies any dizziness or light headedness. Denies any other medical complaints. She affirms that she wishes no further intervention regarding her brain tumor. HOSPITAL COURSE: Pt was admitted to [facility] with above presentation. She has Hx of brain tumor for which neurosurgery service at [facility] has concluded that it is not operable, no further intervention required. She received decadron IV for cerebral edema associated with brain tumor. For Hx of frequent falls she was pl aced on fall precautions with active PT and OT involvement. She did not have fadi episode of fall or syncope during hospitalization. Currently is clinically optimized to dc to SNF. DISCHARGE MEDICATIONS: Please see below. ALLERGIES: Please see below. PHYSICAL EXAMINATION ON DISCHARGE: VITAL SIGNS: Please see below. GENERAL APPEARANCE: NAD HEENT: ALEXANDRA EOMI neck supple no icterus CARDIOVASCULAR: S1 S2 no murmur LUNGS: CTA B/L ABDOMEN: soft, NT, +BS Psych:mood affect appropriate Neuro: motor sensory grossly intact LABORATORY DATA: Please see below. IMAGING: CT study of the cervical spine without contrast: History: Trauma. Comparison is made with imaging done on May 12, 2018. Technique: Helical scanning is acquired and overlapping 2 mm high resolution axial images were generated and reviewed at bone and soft tissue window settings. Coronal and sagittal multiplanar re-formations images are generated. CT findings: There is no evidence of cervical spine element fracture. No skull base fracture is seen. Cervical vertebral body heights are preserved. Alignment is normal. Facet joints are normally aligned bilaterally at each cervical level on multiplanar re-formations images. There is no evidence of intraspinal or paraspinal hematoma. No extra vertebral abnormality is seen. There is fairly extensive degenerative spondylosis with degenerative disc changes at each cervical level and osteoarthritic facet changes noted bilaterally. The osteoarthritic facet hypertrophy and sclerosis are most pronounced on the right. There are somewhat elongate transverse processes bilaterally at C7 noted incidentally. There is calcification associated with a left posterior disc protrusion at C5-6. There is uncovertebral spurring bilaterally at C5-6. This is unchanged from the comparison study May 12, 2018. Impression: Fairly advanced degenerative spondylosis change. Left posterior C5-6 calcified disc protrusion. Otherwise negative CT study of the cervical spine without contrast. No fracture seen. PROGNOSIS: guarded ACTIVITY: [As tolerated]. DIET:as tolerated DISCHARGE PLAN: DISPOSITION: [facility]. ITEMS TO FOLLOWUP ON ON OUTPATIENT: 1.PCP in one week DISCHARGE CONDITION: clinically optimized for dc TIME SPENT ON DISCHARGE: 40 minutes. Vital Signs/I&Os Vital Signs Date Time Temp Pulse Resp B/P (MAP) Pulse Ox O2 Delivery O2 Flow Rate FiO2 02/25/19 09:13 72 109/53 02/25/19 06:00 96.9 20 100 I&O- Last 24 Hours up to 6 AM 02/25/19 06:00 Intake Total 1530 ml Output Total 750 ml Balance 780 ml Discharge Medications Scheduled Ascorbic Acid (Ascorbic Acid) 500 Mg Tablet, 500 MG PO DAILY, (Reported) Atorvastatin Calcium (Atorvastatin Calcium) 40 Mg Tab, 40 MG PO QHS, (Reported) Dexamethasone (Dexamethasone) 2 Mg Tablet, 2 MG PO TID for cerebral edema Docusate Sodium (Colace) 100 Mg Capsule, 100 MG PO BID, (Reported) Furosemide (Furosemide) 20 Mg Tab, 20 MG PO DAILY, (Reported) Levetiracetam (Keppra) 500 Mg Tablet, 500 MG PO BID, (Reported) Metoprolol Succinate (Metoprolol Succinate) 25 Mg Tab.er.24h, 25 MG PO DAILY, (Reported) Pantoprazole Sodium (Pantoprazole Sodium) 40 Mg Tab, 40 MG PO BID, (Reported) Potassium Chloride (Potassium Chloride) 10 Meq Tab.er.prt, 10 MEQ PO BID, (Reported) Allergies Coded Allergies: No Known Allergies (Unverified , 02/16/19) KENYA SAM MD Feb 25, 2019 19:59
== END 2019-02-25 12:58 | DRG 54 ==
LOC: M ED 08:46 → EDBD 08:46 → UNDOADMOB 14:48 → OBSVTOIN 14:48 → M ED INP 14:48 → INTOOBSV 14:48 → M ED INP 15:45 → M MSPAV 15:45 → OBSVTOIN 02-17 14:48
PROVIDERS: ADMIT Internal Medicine; ATTEND Hospitalist
DX: D49.6 Neoplasm of unspecified behavior of brain (principal); G93.6 Cerebral edema; I10 Essential (primary) hypertension; I25.10 Atherosclerotic heart disease of native coronary artery without angina pectoris; E78.5 Hyperlipidemia, unspecified; R29.6 Repeated falls; Z95.5 Presence of coronary angioplasty implant and graft; Z79.899 Other long term (current) drug therapy

== ENCOUNTER → 2019-03-19 | Outpatient (REF) | payer MEDICARE ==
[~2019-03-19] MED LIST changes: +ASCO500T PO; +COLA100C5 PO; +DEXA2TA PO; +KEPP1TAB PO; +METO1TAB32 PO; +POTA10TA67 PO
[2019-03-19 16:49] LABS: HEPATITIS C VIRUS ABY INDEX 0.1 INDEX (<0.8); HIV 1&2 SCREEN CENTAUR NEGATIVE (NEGATIVE)
[2019-03-19 17:43] LABS: CHLAMYDIA DNA AMPLIFICATION NEGATIVE (NEGATIVE); GC DNA AMPLIFICATION NEGATIVE (NEGATIVE)
== END ==
LOC: SKLAB7 09:02
PROVIDERS: ATTEND Internal Medicine
DX: Z79.899 Other long term (current) drug therapy (principal); Z11.4 Encounter for screening for human immunodeficiency virus [HIV]; Z11.3 Encounter for screening for infections with a predominantly sexual mode of transmission

== ENCOUNTER 2019-03-21 10:17 | Emergency (ER) | payer MEDICARE ==
[~2019-03-21] VITALS: Ht 175.3 cm; Wt 77.3 kg
[2019-03-21] MEDS ORDERED: PHENYLEPHRINE 0.5% NASAL SPRAY 15 ML ONE (10:45)
[2019-03-21 11:05] LABS: HEMATOCRIT 45.6 % (36.0-47.0); HEMOGLOBIN 14.8 g/dl (12.0-15.5); MEAN CORPUSCULAR HEMOGLOBIN 28.4 pg (27.0-33.0); MEAN CORPUSCULAR HGB CONC 32.5 g/dl (32.0-36.5); MEAN CORPUSCULAR VOLUME 87.5 fl (80.0-96.0); PLATELET COUNT, AUTOMATED 257 10^3/uL (150-450); RED BLOOD COUNT 5.21 10^6/uL (4.00-5.40); WHITE BLOOD COUNT 15.7 10^3/uL (4.0-10.0)
[2019-03-21 11:15] LABS: INR 1.04; PROTHROMBIN TIME 13.3 SECONDS (11.8-14.0)
[2019-03-21 11:16] LABS: PARTIAL THROMBOPLASTIN TIME 30.8 SECONDS (25.0-38.4)
[2019-03-21 12:57] VITALS: BP 107/69
--- NOTE | 2019-03-21 13:06 | REP ---
HISTORY: Altered mental status. COMPARISON: 02/16/2019 which showed a large mass adjacent to the falx. The mass is causing a shift of the midline structures, status quo. There are no new masses. There is vasogenic edema, status quo. There is no evidence of an acute intracranial hemorrhage. There is compression of the frontal horn of the lateral ventricle on the left, status quo. There is no change in the skull. IMPRESSION: No significant change from 02/16/2019. The patient has a known mass. Electronically Signed by Lamont Gonzalez DO 03/21/2019 01:44 P
== END 2019-03-21 13:29 | disposition home or self-care (01) ==
LOC: M ED 10:58
DX: C71.9 Malignant neoplasm of brain, unspecified (principal); R04.0 Epistaxis; G93.6 Cerebral edema; I25.2 Old myocardial infarction; Z79.899 Other long term (current) drug therapy